=== PATIENT | female | born 1985 | race Caucasian/White ===

== ENCOUNTER → 2021-03-16 | Outpatient (CLI) | payer OTHER | LOC: COL.RAD 02-19 12:30 | DX: M79.2 Neuralgia and neuritis, unspecified (principal); N83.202 Unspecified ovarian cyst, left side | CPT/HCPCS: A9585 ==

== ENCOUNTER → 2021-08-16 | Outpatient (CLI) | payer OTHER ==
[~2021-08-16] MED LIST: HYDROCODONE BIT1 T13 PO; LEVAQUIN 5500 MG/TA1 PO; LEVAQUIN 750MG750 M1 PO; LORTAB 10/500 51 TAB PO; MORPHINE 1515 MG/TAB PO; NEURONTIN300 MG/CAP PO; NORCO 325 MG-101 TAB PO; PEPCID 20MG TAB20 MG PO; PERCOCET 325 MG1 TA2 PO
== END ==
LOC: MHCPAIN 14:15
DX: M47.817 Spondylosis without myelopathy or radiculopathy, lumbosacral region (principal); M54.50 Low back pain, unspecified; M53.3 Sacrococcygeal disorders, not elsewhere classified
CPT/HCPCS: G0463

== ENCOUNTER → 2021-09-16 | Outpatient (CLI) | payer OTHER | LOC: MHCPAIN 09-02 16:03 | DX: M47.817 Spondylosis without myelopathy or radiculopathy, lumbosacral region (principal); M54.50 Low back pain, unspecified; M53.3 Sacrococcygeal disorders, not elsewhere classified | CPT/HCPCS: G0463 ==